=== PATIENT | male | born 1960 | race Caucasian/White ===

== ENCOUNTER 2023-12-09 15:42 | Emergency (ER) | payer BC, SELFPAY ==
[2023-12-09 15:52] VITALS: BP 134/98; BMI 19.4
[2023-12-09 16:32] LABS: % Basophils 0.2 % (0-2); % Eosinophils 0.2 % (0-6); % Immature Granulocytes 0.2 % (0-0.5); % Lymphocytes 21.2 % (20.5-51.1); % Monocytes 5.8 % (1.7-9.3); % Neutrophils 72.4 % (42.2-75.2); Absolute Lymphocytes 1.7 10^3/uL (1.2-3.4); Absolute Monocytes 0.5 10^3/uL (0.1-0.6); Absolute Neutrophils 5.8 10^3/uL (1.4-6.5); Hematocrit 42.6 % (39.0-52.0); Hemoglobin 14.9 g/dL (13.0-18.0); Mean Corpuscular Hgb 32.2 pg (27.0-31.0); Mean Platelet Volume 10.7 fL (7.4-10.4); Nucleated Red Blood Cells % 0 % (-); Platelet Count 238 10^3/uL (130-400); Red Blood Cell Count 4.63 10^6/uL (4.70-6.10); Red Cell Dist. Width 11.4 % (11.5-14.5); White Blood Cell Count 8.1 10^3/uL (4.8-10.8)
[2023-12-09 16:47] LABS: ALT (SGPT) 18 U/L (0-50); AST (SGOT) 22 U/L (17-59); Albumin 4.2 g/dl (3.5-5.0); Alkaline Phosphatase 61 U/L (38-126); Blood Urea Nitrogen 34 mg/dl (9-20); Carbon Dioxide 26 mmol/L (22-30); Chloride 98 mmol/L (98-107); Estimated Creatinine Clearance 93 ml/min; Glucose 106 mg/dl (70-99); Potassium 4.7 mmol/L (3.5-5.1); Sodium 137 mmol/L (135-145); Total Bilirubin 1.2 mg/dl (0.2-1.3); Total Protein 6.7 g/dl (6.3-8.2); eGFR > 60.00
[2023-12-09 17:00] LABS: Troponin I 0.018 ng/ml
--- NOTE | 2023-12-09 19:21 | ED.GENMED ---
History of Present Illness
General
Chief Complaint: Change in Mental Status
Source: patient, spouse and other (Patient's sister)
Exam Limitations: none
Time Seen by Provider: 12/09/23 19:20
Nursing documentation reviewed up to this point in time: agreed with
Travel History
Have you had any contact with someone who has COVID-19?: No
Do you have any symptoms of coronavirus? Fever > 100 degrees, chills, cough, shortness of breath, sore throat, loss of taste or smell, muscle aches, or headache?: No
History of Present Illness
History of Present Illness:
The patient is a 62-year-old man with a past medical history of chronic alcohol use who was brought in by his sister and for concerns of his overall being. They report that the patient abruptly stopped drinking alcohol this past September. In
addition, they report he had been on chronic opioids for right hip pain and gradually weaned himself off of opioids as well. They report that over the last 2 to 3 months, he has lost significant weight, is not eating, is withdrawn from the family,
and seems lethargic and confused. They report he seems as though he is in a fog. They are worried about his wellbeing. The patient reports he does not want to be here and is a poor historian. He has a significantly flat affect. The family
reports he is not sleeping well. He has refused to take any of his medication including antidepressants, thyroid medicine, blood pressure medicine for the last 2 months. reports that he does not have a therapist that he sees nor a
psychiatrist.
Past History
Past History
ED Past Medical History: HTN, Hypothyroidism and Psychiatric (Depression)
ED Past Surgical History: Other
Social History
Tobacco: Smoker
Alcohol: Chronic alcoholic
Drug: None
Personal:
Living: with family
Employment: Employed
Family History
Family History: Other
Review of Systems
Review of Systems
Allergies reviewed?: Yes
Other source history: family
All Other Systems: ROS reviewed and negative except as documented in HPI and ROS
Constitutional: Reports weight loss, fatigue and sleep disturbance
EENT: Reports no symptoms
Respiratory: Reports no symptoms
Cardiac: Reports no symptoms
ABD/GI: Reports anorexia
Musculoskeletal: Reports no symptoms
Neurological: Reports other
Endocrine: Reports no symptoms
Hematologic/Lymphatic: Reports no symptoms
Psychiatric: Reports depression
Phy Exam
Physical Exam
Physical Exam:
Physical Exam
General: no apparent distress, flat affect. Thin appearing
Neck: supple. no meningeal signs. normal psoterior pharynx
Heart: s1/s2 regular rate and rhythm, no murmur. equal radial pulses.
Lungs: no acute respiratory distress. clear bilaterally
Abdomen: normal bowel sounds. not tender. no CVAT
Neuro: alert and orientedx3. no focal neurological deficits. No tremor. No nystagmus
Skin: no rash
Psychiatric: well kept. Flat affect. Barely interactive
Extremities: no edema. no calf tenderness. negative homans. good distal pulses
Course
Orders/Labs/Results
Orders:
Orders
12/09/23 16:00
Electrocardiogram (*1) Urgent
Reason for Study: Chest Pain
EKG- Treatment ONCE
12/09/23 16:16
Complete Blood Count/With Diff Urgent
Comprehensive Metabolic Panel Urgent
TSH Urgent
Comment: ADDON
Troponin I Urgent
12/09/23 19:21
Electrocardiogram (*1) Urgent
Reason for Study: Fatigue / Weakness
EKG- Treatment ONCE
12/09/23 20:00
Add On- LAB Urgent
Tests Added?: TSH
12/09/23 20:02
CR Chest - 2 Views Urgent
Comment:
Reason For Exam: weight loss, smoker
12/09/23 20:21
Ammonia Urgent
12/09/23 20:23
Crisis Consult Urgent
Reason for Consult: severe depression
Comment: tele pysch needed
12/09/23 22:58
Urine Drug Abuse Screen Urgent
Date Specimen was Collected: 12/09/23
Time Specimen was Collected: 22:57
Abnormal Lab Results
12/09/23 12/09/23
16:16 20:21
RBC 4.63 L 10^6/uL
(4.70-6.10)
MCH 32.2 H pg
(27.0-31.0)
RDW 11.4 L %
(11.5-14.5)
MPV 10.7 H fL
(7.4-10.4)
BUN 34 H mg/dl
(9-20)
Glucose 106 H mg/dl
(70-99)
Ammonia < 9 L umol/L
(9-30)
TSH 0.02 L uIU/ml
(0.47-4.68)
12/09/23 16:16
12/09/23 16:16
Vital Signs
Initial and Last Documented VS:
Initial Vital Signs
Temp Pulse Resp BP Pulse Ox
98.5 F 70 16 134/98 100
12/09/23 15:52 12/09/23 15:52 12/09/23 15:52 12/09/23 15:52 12/09/23 15:52
Last Documented Vital Signs
Temp Pulse Resp BP Pulse Ox
98.5 F 70 16 134/98 100
12/09/23 15:52 12/09/23 15:52 12/09/23 15:52 12/09/23 15:52 12/09/23 15:52
MDM/Problems Addressed
Differential Diagnosis Includes:
Depression, hypothyroidism, dehydration
MDM/Problems Addressed:
Patient presents with subacute weight loss, intermittent confusion, withdrawn behavior
Chronic conditions affecting care:
Alcohol use, depression
Acute Exacerbation and/or Progression of Chronic Illness:
Patient is acutely hypertensive, likely due to not taking his medication
*Radiology
Radiology exam reviewed: preliminary read by ED provider (Chest x-ray reviewed by me. No acute disease) and radiology read reviewed
*Pulse Oximetry
Patient hypoxic: no
*EKG
Interpreted by ED Provider?: Yes
Interpretation: normal
Comparison EKG: no comparison EKG present
Rate: normal
Rhythm: sinus
[place]: normal axis
Interval: normal interval
QRS Pattern: normal QRS
Ischemia: no ischemia
*Tafe Lecturer Interpretation
Rate: normal
Interpretation: normal
Rhythm: sinus
*Critical Care Note
Total Time (30-74mins, 75-104mins- exclusive of procedures): 35 minutes
comment:
35 minutes critical care given towards speaking with the patient, speaking with his and sister, as well as reassessing his mental status and discussing the case with the tar worker, as well as speaking later to the about the next step.
Data Reviewed
Source: patient and family
Patient Management
Social determinants of health affecting care: Living situation and Strong social support
Discussion with other providers: Other (crisis team, telepsych)
Escalation/DeEscalation of care consider admission/obs:
Due to patient's extremely flat affect, reported weight loss, withdrawn behavior, and refusing to take his medication, I certainly have concerns that patient has severe depression and needs inpatient psychiatric management. Telepsych consult
ordered. Psychiatrist believes that patient needs inpatient psychiatric help. Patient is now agreeable to this so he is on a 201.
ED Attending Note
-
Portions of this chart may have been created with voice recognition software.� Occasional wrong word or��sound alike� substitutions may have occurred due to the inherent limitations of voice recognition software.
Discharge Plan
Departure
Patient Disposition: Psych Facility
Date of Disposition: 12/09/23
Time of Disposition: 21:32
Patient Status:: 201
Patient with high blood pressure during this ER visit?: Yes
Condition: Critical
Discharge Problem:
Severe major depression, Adult failure to thrive
Prescriptions:
No Action
No Current Medications
0
Rx Instructions:
SEE NOTE
Referrals:
Alfredo Denny, DO [Family Provider] -
Interventions
Interventions:
*Risk Screen - Suicide Last Done: 12/09/23 15:52
*General Assessment Last Done: 12/09/23 21:31
*Neglect/Abuse Screening Last Done: 12/09/23 15:52
ED- Fall Risk Assessment Last Done: 12/09/23 21:32
*ED COVID-19 Vaccine History Last Done: 12/09/23 15:52
ED- Cardiac Assessment Last Done: 12/09/23 21:32
ED- Neurological Assessment Last Done: 12/09/23 21:32
ED-Psychological Assessment Last Done: 12/09/23 21:32
ED Swallowing Screen Last Done: 12/09/23 23:13
[2023-12-09 20:50] LABS: Ammonia < 9 umol/L (9-30)
[2023-12-09 21:11] LABS: TSH 0.02 uIU/ml (0.47-4.68)
--- NOTE | 2023-12-09 23:18 | PHANOTE ---
Med Rec Note:
Pt has not been taking his prescribed medications for months. Pt was prescribed Trazodone 50mg 2 tabs HS, Rosuvastatin 10mg Daily, Duloxetine 60mg Daily, Methimazole 5mg TID, Duloxetine 30mg Daily, Pt states he hasn't taken since August of 2023.
Pt was also prescribed Amlodipine 2.5mg Daily, pt states hasn't taken since October of 2023.
Home med list compiled from Family, Patient and Dr Calix.
[2023-12-09 23:25] LABS: Amphetamines Negative (Negative); Barbiturates Negative (Negative); Benzodiazepines Negative (Negative); Buprenorphine Negative (Negative); Cocaine Negative (Negative); Marijuana Negative (Negative); Methadone Negative (Negative); Methamphetamines Negative (Negative); Opiates Negative (Negative); Phencyclidine Negative (Negative); Tricyclic Antidepressants Negative (Negative)
== END 2023-12-10 01:02 ==
LOC: EMR 15:42
PROVIDERS: Emergency Medicine; EMERGENCY PHYSICIAN Emergency Medicine; FAMILY PHYSICIAN Family Medicine
DX: F32.2 Major depressive disorder, single episode, severe without psychotic features (principal); R62.7 Adult failure to thrive; I10 Essential (primary) hypertension; F17.200 Nicotine dependence, unspecified, uncomplicated
CPT/HCPCS: 99291; 71046; 80053; 80306; 82140; 84443; 84484; 85025; 93005